=== PATIENT | female | born 1970 | race Caucasian/White ===

== ENCOUNTER 2017-02-08 08:42 | Emergency (ER) | payer MEDICAID ==
--- NOTE | 2017-02-08 08:57 | EDM.PDOC ---
[id number]: SICK Time Seen by Provider: 02/08/17 08:50 Source of Information: Reports: Patient History Limitations: Reports: No Limitations - History of Present Illness INITIAL COMMENTS - FREE TEXT/NARRATIVE: History of present illness: [] [place] and while on the plane she noted she had a dry throat. She sucked on after and it improved however once she arrived to [place] her symptoms began worsening again. She complains of facial pressure, pain in her throat pressure in the ears and headache. She denies similar symptoms in the past, fevers, chills, nausea or vomiting. Review of systems: As per history of present illness and below otherwise all systems reviewed and negative. Past medical history: As per history of present illness and as reviewed below otherwise noncontributory. Surgical history: As per history of present illness and as reviewed below otherwise noncontributory. Social history: No reported history of drug or alcohol abuse. Family history: As per history of present illness and as reviewed below otherwise noncontributory. Physical exam: General: Well developed, well nourished in NAD HEENT: Atraumatic, normocephalic, pupils reactive, negative for conjunctival pallor or scleral icterus, mucous membranes moist, throat clear, neck supple, nontender, trachea midline. Maxillary and frontal sinus tenderness to palpation Lungs: Clear to auscultation, breath sounds equal bilaterally, chest nontender. Heart: S1S2, regular, negative for clicks, rubs, or JVD. Abdomen: Soft, nondistended, nontender. Negative for masses or hepatosplenomegaly. Negative for costovertebral tenderness. Pelvis: Stable nontender. Genitourinary: Deferred. Rectal: Deferred. Extremities: Atraumatic, negative for cords or calf pain. Neurovascular unremarkable. Neuro: Awake, alert, oriented. Cranial nerves II through XII unremarkable. Cerebellum unremarkable. Motor and sensory unremarkable throughout. Exam nonfocal. Diagnostics: [] Therapeutics: [] Impression: [] Acute sinusitis Plan: [] Zithromax [id number]-[id number] decongestants and or allergy meds. Followup with PMD turned to ER if symptoms change or worsen. Definitive disposition and diagnosis as appropriate pending reevaluation and review of above. Bilateral Face Pain Score (Numeric/FACES): 9 - Related Data Allergies Allergy/AdvReac Type Severity Reaction Status Date / Time vane Allergy Hives Verified 02/08/17 09:27 Home Meds: Home Meds Azithromycin [Zithromax] 250 mg PO ASDIRECTED #6 tablet 02/08/17 [Rx] Topiramate [Topamax] 200 mg PO DAILY 02/08/17 [History] l-Norgest/E.estradion-E.estrad [Camrese 0.15-0.03-0.01 MG] 02/08/17 [History] ED ROS GENERAL - Review of Systems Review Of Systems: See Below (See history of present illness) ED EXAM, GENERAL - Physical Exam Exam: See Below (See history of present illness) Course - Vital Signs Last Recorded V/S: Last Vital Signs Temp 36.5 C 02/08/17 09:25 Pulse 87 02/08/17 09:25 Resp 18 02/08/17 09:25 BP 114/72 02/08/17 09:25 Pulse Ox 98 02/08/17 09:25 Departure - Departure Time of Disposition: 09:25 Disposition: Home, Self-Care 01 Condition: good Clinical Impression: Acute sinusitis Qualifiers: Sinusitis location: maxillary Recurrence: non-recurrent Qualified Code(s): J01.00 - Acute maxillary sinusitis, unspecified - Discharge Information Prescriptions: Azithromycin [Zithromax] 250 mg PO ASDIRECTED #6 tablet Instructions: Sinusitis, Adult, Tfia-da-Teqf Referrals: [facility] [Outside] Forms: ED Department Discharge Additional Instructions: The following information is given to patients seen in the emergency department who are being discharged to home. This information is to outline your options for follow-up care. We provide all patients seen in our emergency department with a follow-up referral. The need for follow-up, as well as the timing and circumstances, are variable depending upon the specifics of your emergency department visit. If you don't have a primary care physician on staff, we will provide you with a referral. We always advise you to contact your personal physician following an emergency department visit to inform them of the circumstance of the visit and for follow-up with them and/or the need for any referrals to a consulting specialist. The emergency department will also refer you to a specialist when appropriate. This referral assures that you have the opportunity for follow-up care with a specialist. All of these measure are taken in an effort to provide you with optimal care, which includes your follow-up. Under all circumstances we always encourage you to contact your private physician who remains a resource for coordinating your care. When calling for follow-up care, please make the office aware that this follow-up is from your recent emergency room visit. If for any reason you are refused follow-up, please contact the [facility] Emergency Department at and asked to speak to the emergency department charge nurse. Take Zithromax as directed [id number] decongestants and/or allergy medications such as Claritin or Zyrtec. [facility] [address] [place] [id number]
== END 2017-02-08 09:25 | disposition home or self-care (01) ==
LOC: MW.ED 08:42
DX: J01.00 Acute maxillary sinusitis, unspecified (principal); Z79.899 Other long term (current) drug therapy; Z91.018 Allergy to other foods
CPT/HCPCS: 99282; 99283